=== PATIENT | male | born 1970 | race Caucasian/White ===

== ENCOUNTER 2018-06-30 16:49 | Emergency (ER) | payer MEDICAID, SELFPAY ==
[2018-06-30 16:51] VITALS: BP 143/101; PULSE 106; RESP 17; TEMP 36.9; O2SAT 96; BMI 36.6
--- NOTE | 2018-06-30 17:09 | ED.VISSUMM ---
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 He is trying to get the Vivitrol shot. He is working with Dr. yanez at [facility]. He is supposed to do a 3-day naltrexone trial. Today at approximately 1015 he took his first dose. About 20 minutes later he felt as if he was getting high again. He felt his eyes very squinty and extremely anxious. He took a Vistaril and it is not helping. He denies any hives any itching any swelling any difficulty swallowing. He took himself off Zoloft 1 week ago did not taper dosing. He states that [facility] is aware that he is here. Physical Examination: Afebrile vital signs are stable Gen: Well-nourished well-developed Head: Normocephalic atraumatic Eyes: Perrl EOMI ENT: TMs clear no rhinorrhea moist mucous membranes Neck: Supple no lymphadenopathy no JVD nontender CVS: Regular rate rhythm no murmurs normal S1-S2 Respiratory: No distress clear to auscultation bilaterally chest nontender Abdomen: Soft nontender nondistended normal bowel sounds no masses Back: Nontender Extremity: Nontender no edema Skin: Normal color no rash Neuro: alert orientated ?3 CN II-XII intact normal strength sensation reflexes gait cerebellar Psych: Anxious and fidgety Emergency Department Course and Treatment: Patient does not wish to have any medications that are potentially habit forming or addictive. He does not want any benzodiazepines. Patient will be given IM dose of Benadryl. The active metabolite of naltrexone half-life 13-14 hrs. I would suspect he would start feeling better around midnight tonight then. Do not see any evidence of anaphylaxis or acute allergic reaction. This is a known side effect of naltrexone. Impression: 1. Adverse medication reaction This note was generated with [employer] dictation software. It may contain incorrect words, spelling, and punctuation that were not noted in review of the chart prior to signing ED Disposition - Plan for ED Patient: Disposition: Home or Assisted Living Chief Complaint: Allergic Reaction Instructions: ED Drug React Adverse Other Referrals: Barrett Billings MD [Primary Care Provider] - As Needed Additional Instructions: Please follow-up with [facility] as soon as possible Do not take tomorrow as naltrexone dose.
[2018-06-30] MEDS: DiphenhydrAMINE 50 MG/ML Syringe IM (17:23)
--- OUTSIDE RECORDS SUMMARY | 2018-10-04 07:29 | XMS RPT_ITS ---
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 phalanx of the fifth finger extending to the proximal articular surface. Mild soft tissue swelling of the fifth digit. RAD/Hand Min 3 Views IMPRESSION: Fracture of the middle phalanx of the fifth finger. Electronically Signed: Kamari Marcos DO at 21:39 EST Tel [phone], Service support , CC: Barrett Billings MD; Mignon Daley MD Continuous Process Tanner Rotary Drum: Signed INTERNAL MEDICINE Observed: 07/05/2018 Status: F Source: [place] OFFICE VISIT 8:44 AM [facility] [address] [place] [address] [address] [place] [address] OFFICE VISIT Date of Service: 07/04/18 MR#: [id number] Acct: [id number] Name: ANDRES VARGAS . Rep #: [id number] : 1970 Provider: David Horta NP Age/Sex: 47/M [place] [facility] Status: Signed Intake Vital Signs07/04/18 Body Mass Index (BMI) 36.6 07/04/18 Height 5 ft 4 in 07/04/18 Weight: 209 lb 07/04/18 Body Mass Index (BMI) 35.9 07/04/18 Blood Pressure 135/85 H 07/04/18 Blood Pressure Location Lt brachial Intake Visit Reasons: follow up Chief Complaint: Follow up - Is patient in pain?: Yes (Rt knee) Pain scale (1-10): 8 Allergies naltrexone Allergy (Severe, Verified 07/04/18 10:03) Anxiety Medications acetaminophen 500 mg tablet 500 - 1,000 mg PO Q8H PRN #60 tab 05/23/18 [Rx Confirmed 06/30/18] hydroxyzine HCl 25 mg tablet 25 mg PO TID PRN #60 tab 05/25/18 [Rx Confirmed 06/30/18] dextromethorphan-guaifenesin ER 60 mg-1,200 mg tab,extend release,12hr 1 tab PO Q12H #20 tab 07/04/18 [Rx Confirmed 07/04/18] ibuprofen 400 mg tablet 400 mg PO BID PRN #60 tab 07/04/18 [Rx Confirmed 07/04/18] sodium chloride 0.65 % nasal spray aerosol 2 spray INTRANASAL Q1-4H PRN #104 ml 07/04/18 [Rx Confirmed 07/04/18] trazodone 50 mg tablet 50 mg PO QHS #30 tab 07/04/18 [Rx Confirmed 07/04/18] PFSH Medical History Chronic knee pain (Acute) Drug abuse (Acute) Family History Father Hypertension Heart disease Diabetes Mother Heart disease Hypertension Rectal cancer Diabetes Brother Bone cancer Brain cancer Lung cancer Sister Breast cancer Social History Smoking Status: Current every day smoker alcohol intake: never substance use type: crack/cocaine, other details: Perc 30's Suboxone, former substance user what type of physical activity do you participate in: none HPI HPI Chief Complaint: Follow up - Details: ANDRES VARGAS, is a 47 M who presents to the office today for a routine follow-up, however he has some acute concerns as well. He has a past medical history as listed above. The patient is currently still enrolled in the 180 program for prior drug use. He has not gotten any of his blood work done that was ordered at prior visit. The patient states regarding his depression, he did not tolerate the sertraline to discontinue at, however the trazodone that he takes at night helps with his sleep but also with his depression as well. He takes Vistaril as needed for his anxiety which he does well with. He does have some acute concerns of right knee pain and productive cough of clear sputum. He states the cough has been going on since last night and the knee pain has been going on for 3 days. Regarding the cough he has not tried any gmge-cam-tpxkjlv treatments, he denies any other associated symptoms with the cough. He does state that he has been exposed to some sick contacts at the house he is residing in. He brings up right knee pain which occurred approximately 3 days ago when he is playing racFlowbox and he felt his knee pop in and out of place. Since then he states that he has been swollen on the medial and lateral aspect and has been painful 4 out of 10 worse with ambulation. Denies any icing or any treatments at this time. The patient otherwise denies any fever, chills, nausea, vomiting, shortness of breath, chest pain or pressure, palpitations, orthopnea, lower extremity edema, syncope or presyncopal episodes. ROS Const Constitutional: No chills, fatigue, fever(s), frequent falls, malaise, weakness, sleep problems, change in appetite or headache(s) Eyes Eyes: No blurry vision, change in vision, double vision, discharge or visual disturbances ENT ENT: Positive for sore throat; no abnormal hearing, ear pain, ear pressure, tinnitus, dizziness/vertigo or headache(s) Resp Respiratory: Positive for cough Cough: Yes productive; no shortness of breath or wheezing Cardio Cardiology: No chest pain at rest, chest pain with exertion, shortness of breath, dyspnea on exertion, generalized swelling, irregular heart rhythm, lightheadedness, orthopnea, fast heart rate or palpitations Gastro GI: No abdominal pain, change in bowel habits, constipation, diarrhea, nausea/dyspepsia or vomiting Genitourinary Male: No difficulty urinating, burning urination, painful urination, urinary incontinence, urinary frequency, urinary urgency, urinary hesitancy, urinary retention, blood in urine, Frequent nighttime urination/ nocturia, sexual problems, testicle lump or testicle pain Musc Musculoskeletal: Positive for joint pain (Rt knee); no back pain, joint swelling, limited range of motion, muscle weakness, numbness or tingling Skin Skin: No change in skin color, itching, rash or wounds Breast Breast: No breast lump or breast pain Neuro Neurology: No frequent falls, weakness, abnormal hearing, numbness, tingling, unsteady gait/balance, dizziness, loss of vision, memory loss, visual disturbances or headache(s) Psych Psychiatric: No memory loss, No anxiety, No change in appetite, No depression, No Thoughts of harming yourself/Others Endo Endocrine: No fatigue, heat intolerance, increased thirst/drinking, increased hunger or increased urination Aller/Imm Allergy/Immunologic: No wheezing, itchy eyes or seasonal allergy symptoms Hugh/Lymp Hematologic/Lymphatic: No easy bleeding, easy bruising or enlarged lymph nodes Exam Const General: cooperative, comfortable, no acute distress Nutritional Appearance: well nourished, obese Orientation: alert, oriented x3 Limitations: mental status not altered HENMT Head: normal to inspection Ears: hearing grossly normal bilaterally, TM's normal bilaterally Nose: external nose normal, mucous membranes and turbinates abnormal other (dry bilaterally), no nasal discharge noted Face and sinus: normal facial exam Mouth: oral mucosae normal Teeth and gingiva: poor dentition Throat: posterior oropharynx normal Neck Neck: no lymphadenopathy Resp Effort AND Inspection: normal respiratory effort, able to speak in complete sentences, normal respiratory pattern, symmetric chest movement, no audible wheezes, no cough Auscultation: Bilateral: Expiratory Wheezes (clears with cough) Cardio Palpation: normal PMI Rate: regular rate Heart Sounds: S1 normal, S2 normal, normal S1 and S2, no click, no gallops, no murmurs, no rubs Musc Musculoskeletal: No muscle weakness Other: Small amount of edema with tenderness present right medial and lateral patella, full range of motion, mild crepitus noted as well with passive and active range of motion. Negative anterior posterior drawer Skin General: no rashes or lesions noted, elasticity normal, turgor normal Lesions: no lesions Rashes: no rashes Neuro General: alert, awake, oriented x3, CN's II-XI intact bilaterally Speech: speech normal Gait: normal gait Motor: muscle tone normal throughout Extrem General: normal to inspection, normal gait, no edema, no pedal edema Psych Appearance: grossly normal Mental Status: mental status grossly normal Affect: normal affect Attitude: cooperative Thought Process: normal Assessment AND Plan 1. Cough R05 Plan Duration times 1 day, most likely viral at this time. Encouraged smoking cessation, will treat supportively with Mucinex DM and nasal [place] given his dry nasal mucosa. Discussed red like symptoms requiring urgent medical attention. Patient verbalized understanding. 2. Acute pain of right knee M25.561 Plan Status post recent injury playing racquetball, x-ray ordered of the right knee. Will treat conservatively at this time and referral to Orth O in the future if indicated. May continue with the use of neih-lii-vwjxoyf analgesics such as ibuprofen or Tylenol as called to his pharmacy. Rest the affected extremity Ice the affected area for 20 minutes every 4 hours Compress the area with the supplies provided Elevate the affected extremity above the heart whenever possible Orders Orders: 3. Polysubstance abuse F19.10 Plan Patient to continue with the 180 program and encouraged to have baseline blood work done that was ordered at prior office visit. 4. Anxiety and depression F41.9; F32.9 Plan Controlled on as needed Vistaril for anxiety and trazodone for the depression, no changes to current medication regimen. He was unable to tolerate SSRI therapy. Medications New: 5. Tobacco abuse Z72.0 Plan Unwilling to discuss pharmacologic options at smoking cessation at this time, will address at future visit. Plan Detail Other Medications New: dextromethorphan-guaifenesin 60-1,200 mg (Mucinex DM) take w1 tab PO Q12H 20 tabs 0RF ith full glass of water Refilled: Follow Up 4 weeks or sooner if needed Coding Level of Care Code Off vis,est,level 4 Diagnoses Cough R05 Acute pain of right knee M25.561 Polysubstance abuse F19.10 Anxiety and depression F41.9; F32.9 Tobacco abuse Z72.0 07/05/18 0844 <Electronically signed by David ALVARENGA> Date David ALVARENGA Cosigner Signature: Date (if applicable) CC: EMERGENCY DEPARTMENT Observed: 06/30/2018 Status: F Source: [place] SUMMARY 10:39 PM [facility] REPOSITORY [facility] Medical Records Department [address] [place] [address] Emergency Department Summary 06/30/18 1709 MR#: [id number] Acct: [id number] Name: ANDRES VARGAS Jr. Rep #: [id number] : 1970 47 From: Pj Valles DO PCP: Barrett Billings MD Status: DEP ER - ER Visit Summary Date of Service: 06/30/18 Chief Complaint: Medication reaction History of Present Illness: The patient is a 47 M who is 37 days sober. He is trying to get the Vivitrol shot. He is working with Dr. yanez at 180. He is supposed to do a 3-day naltrexone trial. Today at approximately 1015 he took his first dose. About 20 minutes later he felt as if he was getting high again. He felt his eyes very squinty and extremely anxious. He took a Vistaril and it is not helping. He denies any hives any itching any swelling any difficulty swallowing. He took himself off Zoloft 1 week ago did not taper dosing. He states that 180 is aware that he is here. Physical Examination: Afebrile vital signs are stable Gen: Well-nourished well-developed Head: Normocephalic atraumatic Eyes: Perrl EOMI ENT: TMs clear no rhinorrhea moist mucous membranes Neck: Supple no lymphadenopathy no JVD nontender CVS: Regular rate rhythm no murmurs normal S1-S2 Respiratory: No distress clear to auscultation bilaterally chest nontender Abdomen: Soft nontender nondistended normal bowel sounds no masses Back: Nontender Extremity: Nontender no edema Skin: Normal color no rash Neuro: alert orientated 3 CN II-XII intact normal strength sensation reflexes gait cerebellar Psych: Anxious and fidgety Emergency Department Course and Treatment: Patient does not wish to have any medications that are potentially habit forming or addictive. He does not want any benzodiazepines. Patient will be given IM dose of Benadryl. The active metabolite of naltrexone half-life 13-14 hrs. I would suspect he would start feeling better around midnight tonight then. Do not see any evidence of anaphylaxis or acute allergic reaction. This is a known side effect of naltrexone. Impression: 1. Adverse medication reaction This note was generated with BDA dictation software. It may contain incorrect words, spelling, and punctuation that were not noted in review of the chart prior to signing ED Disposition - Plan for ED Patient: Disposition: Home or Assisted Living Chief Complaint: Allergic Reaction Instructions: ED Drug React Adverse Other Referrals: Barrett Billings MD [Primary Care Provider] - As Needed Additional Instructions: Please follow-up with 180 as soon as possible Do not take tomorrow as naltrexone dose. What to do if you have Problems For any increased pain, shortness of breath, bleeding, nausea or vomiting, chest pain, or any unexpected problems, contact your Primary Care Provider. Call [facility] ([phone]) or report to the closest Emergency Room. Call 911 if necessary. 06/30/18 4848 <Electronically signed by Pj Valles DO> Date Pj Valles DO Cosigner Signature (If Indicated): Date CC: Barrett Billings MD INTERNAL MEDICINE Observed: 05/23/2018 Status: F Source: [place] OFFICE VISIT 4:33 PM [facility] [address] [place] [address] [address] [place] [address] OFFICE VISIT Date of Service: 05/23/18 MR#: [id number] Acct: [id number] Name: ANDRES VARGAS Rep #: [id number] : 1970 Provider: David Horta NP Age/Sex: 47/M [place] [facility] Status: Signed Intake Vital Signs05/23/18 Height 5 ft 4 in 05/23/18 Weight: 189 lb 05/23/18 Body Mass Index (BMI) 32.4 05/23/18 Blood Pressure 156/80 H 05/23/18 Blood Pressure Location Lt brachial Intake Visit Reasons: ONE EIGHTY Chief Complaint: 180 physical Is patient in pain?: Yes (Withdrawal) Allergies No Known Allergies Allergy (Unverified 05/23/18 14:19) Medications acetaminophen 500 mg tablet 500 - 1,000 mg PO Q8H PRN #60 tab 05/23/18 [Rx Confirmed 05/23/18] amoxicillin 875 mg-potassium clavulanate 125 mg tablet 1 tab PO BID #20 tab 05/23/18 [Rx Confirmed 05/23/18] ibuprofen 400 mg tablet 400 mg PO BID PRN #60 tab 05/23/18 [Rx Confirmed 05/23/18] loperamide 2 mg tablet 2 mg PO Q8H PRN #10 tab 05/23/18 [Rx Confirmed 05/23/18] sertraline 50 mg tablet 50 mg PO QDAY #30 tab 05/23/18 [Rx Confirmed 05/23/18] PFSH Medical History Chronic knee pain (Acute) Drug abuse (Acute) Family History Father Hypertension Heart disease Diabetes Mother Heart disease Hypertension Rectal cancer Diabetes Brother Bone cancer Brain cancer Lung cancer Sister Breast cancer Social History Smoking Status: Heavy Smoker (>10/day) alcohol intake: never substance use type: crack/cocaine, other details: Perc 30's Suboxone, former substance user what type of physical activity do you participate in: none HPI HPI Chief Complaint: 180 physical Details: ANRDES VARGAS, is a 47 M who presents to the office today for physical for admittance into 180 program. The patient has a past medical history of polysubstance abuse, anxiety, and depression but has never been on prescription medication for his anxiety/depression. Patient presents today for physical so that he can be admitted into the 180 program. He states that he has a past history of drug use with snorting cocaine, smoking crack and taking Percocet. Patient states he has been clean for 2 days. He is actively detoxing and presents today with the bridge detox device to his left ear, he states this device helps with detox and makes his symptoms significantly less. This was provided to him from the 180 program. He is complaining of intermittent nausea and diarrhea and is requesting an antidiarrheal neql-knh-ezdchun agent. The patient states he does not have a significant past medical history, he does not take routine medications. He smokes about a pack and a half a day with rare alcohol use, he does not wish to quit smoking at this time. He has no concerns for STDs. He does admit to significant anxiety/depression for several years now. He denies any thoughts of harming self or others however. He does admit to very poor dentition and states that last week 1 of his teeth on his right lower jaw cracked off and that is causing him to have a dull achy pain as well. The patient otherwise denies any fever, chills, nausea, vomiting, shortness of breath, chest pain or pressure, palpitations, orthopnea, lower extremity edema, syncope or presyncopal episodes. ROS Const Constitutional: No chills, fatigue, fever(s), frequent falls, malaise, weakness, sleep problems or change in appetite Eyes Eyes: No blurry vision, change in vision, double vision, discharge or visual disturbances ENT ENT: No abnormal hearing, ear pain, ear pressure, tinnitus or dizziness/vertigo Resp Respiratory: No cough, shortness of breath or wheezing Cardio Cardiology: No chest pain at rest, chest pain with exertion, shortness of breath, dyspnea on exertion, generalized swelling, irregular heart rhythm, lightheadedness, orthopnea, fast heart rate or palpitations Gastro GI: No abdominal pain, change in bowel habits, constipation, diarrhea, nausea/dyspepsia or vomiting Genitourinary Male: No difficulty urinating, burning urination, painful urination, urinary incontinence, urinary frequency, urinary urgency, urinary hesitancy, urinary retention, blood in urine, Frequent nighttime urination/ nocturia, sexual problems, testicle lump or testicle pain Musc Musculoskeletal: Positive for joint pain (Rt Knee); no back pain, joint swelling, limited range of motion, muscle weakness, numbness or tingling Skin Skin: No change in skin color, itching, rash or wounds Breast Breast: No breast lump or breast pain Neuro Neurology: No frequent falls, weakness, abnormal hearing, numbness, tingling, unsteady gait/balance, dizziness, loss of vision, memory loss or visual disturbances Psych Psychiatric: No memory loss, No anxiety, No change in appetite, No depression, No Thoughts of harming yourself/Others Endo Endocrine: No fatigue, heat intolerance, increased thirst/drinking, increased hunger or increased urination Aller/Imm Allergy/Immunologic: No wheezing, itchy eyes or seasonal allergy symptoms Hugh/Lymp Hematologic/Lymphatic: No easy bleeding, easy bruising or enlarged lymph nodes Exam Const General: cooperative, comfortable, no acute distress Nutritional Appearance: average body habitus, well nourished Orientation: alert, oriented x3 Limitations: mental status not altered [facility] Head: normal to inspection Ears: hearing grossly normal bilaterally, other (bridge device in place left ear) Nose: external nose normal Face and sinus: normal facial exam Mouth: oral mucosae normal, malodorous breath Teeth and gingiva: poor dentition, caries, abnormal tooth or associated gingiva, other (multiple broken off teeth, upper and lower, no abscess or fluctuance) Eyes General: appearance normal, both eyes and all related structures Neck Neck: no lymphadenopathy Resp Effort AND Inspection: normal respiratory effort, able to speak in complete sentences, normal respiratory pattern, symmetric chest movement, no audible wheezes, no cough Auscultation: Bilateral: Clear to Auscultation Cardio Palpation: normal PMI Rate: regular rate Heart Sounds: S1 normal, S2 normal, normal S1 and S2, no click, no gallops, no murmurs, no rubs GI Inspection: normal to inspection Auscultation: normal bowel sounds, no hyperactive bowel sounds, no hypoactive bowel sounds Palpation: soft, no hepatosplenomegaly, tender (mild, with bloating) in the LLQ, in the RLQ, in the LUQ and in the RUQ Musc Musculoskeletal: No muscle weakness Skin General: no rashes or lesions noted, elasticity normal, turgor normal Lesions: no lesions Rashes: no rashes Neuro General: alert, awake, oriented x3, CN's II-XI intact bilaterally Speech: speech normal Gait: normal gait Motor: muscle tone normal throughout Extrem General: normal to inspection, normal gait, no edema, no pedal edema Psych Appearance: grossly normal Mental Status: mental status grossly normal Affect: anxious affect Attitude: cooperative Thought Process: normal Assessment AND Plan 1. Polysubstance abuse F19.10 Plan Patient currently in acute detox, however his vitals and symptoms are stable at this time. Baseline blood work ordered. Patient is trialing the bridge medical geneticist to minimize opioid withdrawal symptoms. He has having occasional diarrhea and some abdominal bloating, Imodium cepn-bzd-qeigbyc was called to his pharmacy. Wrvn-gmn-wawjnpi ibuprofen and Tylenol was called to his pharmacy as well. Baseline blood work ordered. Patient cleared to be admitted to the 180 program. Orders Orders: 2. Anxiety and depression F41.9; F32.9 Plan Patient does have both anxiety and depression, his PHQ 9 score was 18 indicating moderately severe depression. He currently denies any thoughts of harming self or others. We will start him on sertraline 50 mg daily, advised to call office in 2 weeks and if still having difficulties with anxiety and depression then may consider increasing the dose. Discussed with him that benzodiazepines are not appropriate given his history. Orders Orders: 3. Toothache K08.89 Plan Patient has very poor dentition and multiple caries, will place on Augmentin and instructed to follow-up with dentist as soon as possible. Discussed red flag symptoms of infection that require urgent medical attention. Patient verbalized understanding. 4. Tobacco abuse Z72.0 Plan Patient does have a significant smoking history, however does not wish to discuss smoking cessation at this time. Will follow at future visit. Plan Detail Other Orders Orders: Other Medications New: Follow Up 4 weeks or sooner if needed Coding Level of Care Code Off vis,new,level 3 Diagnoses Polysubstance abuse F19.10 Anxiety and depression F41.9; F32.9 Toothache K08.89 Tobacco abuse Z72.0 05/23/18 1633 <Electronically signed by David ALVARENGA> Date David Horta NP-C Cosigner Signature: Date (if applicable) CC: ALLERGIES ALLERGIES DATE TYPE / CODE NAME / CODE REACTION SEVERITY SOURCE 07/04/2018 Drug naltrexone/F0 ANXIETY SV [facility] Allergy/4160 [id number]([facility] 22874(SNOMED RM) Repository CT) 06/30/2018 Drug No Known Unknown [facility] Allergy/4160 Allergies/F00 [facility] 11030(SNOMED [id number](RXNOR Repository CT) M) ENCOUNTERS ENCOUNTERS ADMIT/DISCHARGE ACCOUNT ADMITTING ENCOUNTER LOCATION SOURCE NUMBER CLASS 08/08/2018 [id number] Ambulatory [facility]MS[facility]:B [place] [facility] [place] [place] 08/08/2018/ [id number] Ambulatory BMSBuilding:B [place] 9 0 [facility] [place] 08/07/2018 [id number] Ambulatory [place] 9 [facility] ing:PT Repository 07/24/2018 [id number] Ambulatory [place] 2 [facility] ing:LAB Repository 07/19/2018 [id number] Ambulatory [place] 9 [facility] ing:LAB Repository 07/07/2018/ [id number] Emergency [place] 8 5 [facility] ing:ED Repository 07/04/2018/ [id number] Ambulatory BMSBuilding:B [place] 8 6 [place] [place] 06/30/2018/ [id number] Emergency [place] 8 7 [facility] ing:ED Repository 05/25/2018 [id number] Ambulatory BMSBuilding:B [place] 9 [place] [place] 05/23/2018/ [id number] Ambulatory BMSBuilding:B [place] 8 1 [facility] [place] PAYERS PAYERS ENCOUNTER GUARANTOR PAYER SUBSCRIBER SOURCE 08/08/2018 ANDRES [place] Primary ANDRES Ambrose [place] VARGAS Jr.6003 Insurance:MARGARET VARGAS Jr.: [facility] [id number]: Repository [place] [id number]: [id number] Date:[id number] [address]DJ: 08/08/2018 Secondary NOT GIVENUNK [place] Insurance:SELF PAY [facility] [facility] Number: Effective Repository Date:2018-08-08 08/08/2018 ANDRES Primary ANDRES Ambrose Gabby VARGAS Jr.6003 Insurance:MARGARET VARGAS Jr.: [facility] [place] [id number], Number: Repository [place] [id number]: [id number] Date:9198-96-24ZE [address] () [address] [address]OC: 08/08/2018 Secondary NOT GIVENUNK [place] Insurance:SELF PAY [facility] Number: Effective Repository Date:2018-08-01 08/07/2018 ANDRES H Primary ANRDES Ambrose Gabby VARGAS Jr.6003 Insurance:MARGARET VARGAS Jr.: [facility] [place] [id number], Number: Repository [place] [id number]: [id number] Date:1602-74-37WS [address] ([address]) [address], [place] [address]RC: 08/07/2018 Secondary NOT GIVENUNK [place] Insurance:SELF PAY [facility] Number: Effective Repository Date:2018-08-01 07/24/2018 [facility] Primary ANDRES Pierre SAM Chairez.6003 A Insurance:MARGARET VARGAS Jr.: [facility] [id number], Number: Repository [place] [id number]: [id number] Date:6599-60-98NL [address] ([address]) [address], [place] [address]DF: 07/24/2018 Secondary NOT GIVENUNK [place] Insurance:SELF PAY [facility] Number: Effective Repository Date:2018-07-24 07/19/2018 [facility] Primary ANDRES Pierre SAM Chairez.[id number] A Insurance:MARGARET VARGAS Jr.: [facility] [id number], Number: Repository [place] [id number]: [id number] Date:6166-47-08YN [address] () [address], [place] [address]ZV: 07/19/2018 Secondary NOT GIVENUNK Gabby Insurance:SELF PAY [facility] Number: Effective Repository Date:2018-07-19 07/07/2018 [facility] Primary ANDRES Pierre SAM Chairez.6003 A Insurance:MARGARET VARGAS Jr.: [facility] [id number] Hospital, Number: [place]ository [place] [id number]: [id number] Date:3749-81-78CI [address] ([address]) [address], [place] [address]DF: 07/07/2018 Secondary NOT GIVENUNK [place] Insurance:SELF PAY [facility] Number: Effective Repository Date:2018-07-07 07/04/2018 ANDRES H Primary ANDRES VARGAS Jr.6003 A Insurance:MARGARET VARGAS Jr.: [facility] [id number] Hospital, Number: Repository [place] [id number]: [id number] Date:4099-79-01DH [address] () [address] [address]BI: 07/04/2018 Secondary NOT GIVENUNK Gabby Insurance:SELF PAY [facility] Number: Effective Repository Date:2018-07-04 06/30/2018 [facility] Primary ANDRES VARGAS Jr.6003 A Insurance:MARGARET VARGAS Jr.: [facility] [id number] Hospital, Number: Repository [place] [id number]: [id number] Date:6440-98-89MU [address] () [address] [address]DR: 06/30/2018 Secondary NOT GIVENUNK Gabby Insurance:SELF PAY [facility] Number: Effective Repository Date:2018-06-30 05/25/2018 ANDRES Primary NOT GIVENUNK [place] [id number] Insurance:SELF PAY [facility], Number: Effective Repository [place] [id number]: Date:2018-05-25 () 05/23/2018 ANDRES Primary NOT GIVENUNK [place] [id number] Insurance:SELF PAY [facility], Number: Effective Repository [place] [phone]: Date:2018-05-23 ()
== END 2018-06-30 17:41 | disposition home or self-care (01) ==
PROVIDERS: Emergency Provider Emergency Medicine; Family Provider Internal Medicine; PCP Internal Medicine
DX: T88.7XXA Unspecified adverse effect of drug or medicament, initial encounter (principal); T50.7X5A Adverse effect of analeptics and opioid receptor antagonists, initial encounter; Y92.9 Unspecified place or not applicable; F41.9 Anxiety disorder, unspecified; Z72.0 Tobacco use; Z79.899 Other long term (current) drug therapy
CPT/HCPCS: 96372; 99282

== ENCOUNTER 2018-07-07 20:29 | Emergency (ER) | payer MEDICAID, SELFPAY ==
[2018-07-04 10:07] VITALS: BMI 36.6
[2018-07-07 20:30] VITALS: BP 147/98; PULSE 106; RESP 22; TEMP 36.3; O2SAT 98; BMI 38.0
--- NOTE | 2018-07-07 20:47 | ED.DCSUM_ITS ---
- ER Visit Summary Date of Service: 07/07/18 Chief Complaint: Left fifth finger injury History of Present Illness: The patient is a 47 M who reports catching his left fifth finger and twisting it shortly before arrival. His pain throughout the length of the fifth finger. He denies paresthesias. He is right-hand dominant. Physical Examination: Vital signs unremarkable. Patient sitting upright on the side of the bed no acute distress. Left upper extremity examination reveals diffuse tenderness throughout the left fifth finger. There is early ecchymosis noted. No deformity is appreciated. He has normal sensation and cap refill distally. Test Results: X-ray reveals a fracture through the proximal portion of the middle phalanx of the fifth finger. There is extension into the PIP joint. Emergency Department Course and Treatment: Patient is placed in an AlumaFoam splint. I did encourage close follow-up with orthopedic surgeon who does do hand work because of the joint involvement. He is given information for Dr. Sierra as well as the hand surgeons in [place]. Treatment Plan: [] Disposition: Discharge Impression: Left fifth finger fracture This note was generated with [employer] dictation software. It may contain incorrect words, spelling, and punctuation that were not noted in review of the chart prior to signing ED Disposition - Plan for ED Patient: Chief Complaint: Upper Extremity Injury Referrals: Barrett Billings MD [Primary Care Provider] -
--- NOTE | 2018-07-07 20:50 | RAD_ITS ---
STUDY: X-RAY - LEFT HAND REASON FOR EXAM: Male, 47 years old. Pain, fifth digit injury TECHNIQUE: 3 view(s) of the hand. COMPARISON: None. FINDINGS: Normal radiocarpal articulation. Normal distal radioulnar joint. Normal visualized carpal bones. Normal carpal articulations Normal carpometacarpal articulation of the thumb. Normal second through fifth carpometacarpal joints. Normal metacarpi. Normal metacarpophalangeal joint of the thumb. Normal interphalangeal joint of the thumb. Normal proximal and distal phalanges of the thumb. Normal metacarpophalangeal joints of the second through fifth fingers. Normal proximal and distal interphalangeal joints of the second through fifth fingers. Fracture of the middle phalanx of the fifth finger extending to the proximal articular surface. Mild soft tissue swelling of the fifth digit. RAD/Hand Min 3 Views IMPRESSION: Fracture of the middle phalanx of the fifth finger. Electronically Signed: Kamari Marcos DO at 21:39 EST Tel [phone], Service support ,
--- NOTE | 2018-07-07 21:06 | ED.DEP ---
ED Disposition - Plan for ED Patient: Disposition: Home or Assisted Living Chief Complaint: Upper Extremity Injury Instructions: ED Fx Finger Closed Prescriptions: Naproxen [Naprosyn] 500 mg PO BID PRN PRN #20 tablet PRN Reason: Pain Referrals: Kavitha Sierra DO [STAFF PHYSICIAN] - Yonas Gonzalez MD [NON-STAFF] - Additional Instructions: Follow-up with one of the hand surgeons above in [address] splint in place.
[2018-07-07 21:36] VITALS: PULSE 111; RESP 16; O2SAT 99
== END 2018-07-07 21:37 | disposition home or self-care (01) ==
PROVIDERS: Emergency Provider Emergency Medicine; Family Provider Internal Medicine; PCP Internal Medicine
DX: S62.627A Displaced fracture of middle phalanx of left little finger, initial encounter for closed fracture (principal); X50.1XXA Overexertion from prolonged static or awkward postures, initial encounter; Y93.9 Activity, unspecified; Y92.9 Unspecified place or not applicable; Y99.9 Unspecified external cause status; F32.9 Major depressive disorder, single episode, unspecified; F41.9 Anxiety disorder, unspecified; Z72.0 Tobacco use
CPT/HCPCS: 73130; 99282

== ENCOUNTER → 2018-07-19 15:03 | Outpatient (CLI) | payer MEDICAID, SELFPAY ==
[2018-07-07 20:30] VITALS: BMI 38.0
--- NOTE | 2018-07-19 15:28 | RAD_ITS ---
STUDY: X-RAY - RIGHT KNEE REASON FOR EXAM: Male, 47 years old. Right knee pain. No known injury. TECHNIQUE: 3 view(s) of the knee. COMPARISON: None. FINDINGS: There is subcortical cystic degenerative change and focal cortical lobulation along the articular aspect of the medial femoral condyle. Normal visualized proximal tibia and fibula. Normal patella. There is no demonstrated destructive osseous lesion or acute fracture. There is borderline degenerative narrowing of the medial femorotibial compartment. Normal lateral femorotibial compartment. Normal patellofemoral articulation. Normal proximal tibiofibular articulation. There is no demonstrated joint effusion. The soft tissue structures are unremarkable. RAD/Knee 3 Views IMPRESSION: Subcortical cystic degenerative change and focal cortical lobulation along the articular margin of the medial femoral condyle. Electronically Signed: Preet Clancy MD at 15:29 EST , Service support ,
[2018-07-19 15:54] LABS: Absolute Lymphocyte Count 2.55 X10^3/ul (0.83-4.51); Absolute Neutrophil Count 6.8 X10^3/uL (2.0-7.7); Basophil# 0.04 X10^3/uL; Basophil% 0.4 % (0-1); Eosinophils% 2.9 % (0-5); Hematocrit 46.1 % (40-54); Hemoglobin 15.1 g/dl (13.0-16.5); Lymphocyte # 2.55 X10^3/ul (4.0); Lymphocyte % 24.3 % (19-41); Mean Corp Hgb Conc 32.8 g/gl (32-36); Mean Corpuscular Hgb 28.1 pg (27.0-32.0); Mean Corpuscular Volume 85.8 fL (80-94); Mean Platelet Vol. 11.2 fl (6.2-12.0); Monocyte% 6.7 % (0-10); Neutrophil # 6.82 X10^3/uL (2.7-7.7); Neutrophil % 64.9 % (47-70); Platelet Count 282 K/mm3 (150-450); RBC Distribution Width CV 13.7 % (11.6-14.6); RBC Distribution Width SD 42.4 fl (35.1-43.9); Red Blood Count 5.37 M/mm3 (4.6-6.2); White Blood Count 10.5 K/mm3 (4.4-11.0)
[2018-07-19 15:56] LABS: POSITIVE COUNT NO; POSITIVE DIFFERENTIAL NO; POSITIVE MORPHOLOGY NO
[2018-07-19 16:36] LABS: ALB/GLOB Ratio 1.1 RATIO (0.9-2.4); AST(SGOT) 42 U/L (15-37); Alanine Aminotransfer ALT/SGPT 79 U/L (16-61); Alkaline Phosphatase 102 U/L (45-117); Anion Gap 8 (5-15); BUN 20 mg/dL (7-18); BUN/Creat Ratio 14.9 RATIO (10-20); Calcium,Total 8.9 mg/dL (8.5-10.1); Chloride 103 mmol/L (98-107); Creatinine, Serum 1.34 mg/dL (0.70-1.30); EST Glomerular Filtration Rate 61 mL/min (>60); Est Glom Filt Rate - Afr Amer 74 mL/min (>60); Globulin 3.5 g/dL (2.2-4.2); Glucose 118 mg/dL (74-106); Potassium 4.1 mmol/L (3.5-5.1); Protein, Total 7.5 g/dL (6.4-8.2); Sodium Level 139 mmol/L (136-145); Thyroid Stim Hormone (TSH) 1.04 uIU/mL (0.358-3.74)
[2018-07-19 17:34] LABS: HIV - WCH Non-Reactive (Nonreactive)
[2018-07-21 03:06] LABS: HEPATITIS B SURFACE AG Negative (Negative); Hepatitis A AB, Total Negative (Negative); Hepatitis A IgM Antibody Negative (Negative); Hepatitis B Core AB IgM Negative (Negative); Hepatitis B Core Ab Total Negative (Negative); Hepatitis C Ab <0.1 s/co ratio (0.0-0.9)
[2018-07-21 16:42] LABS: Hep B Surface Antibodies Non Reactive (.)
== END ==
PROVIDERS: Family Provider Internal Medicine; PCP Internal Medicine; Referring Provider Nurse Practitioner Family; Visit Provider Nurse Practitioner Family
DX: M25.561 Pain in right knee (principal); F19.10 Other psychoactive substance abuse, uncomplicated; F32.9 Major depressive disorder, single episode, unspecified; F41.9 Anxiety disorder, unspecified
CPT/HCPCS: 36415; 73562; 80053; 84443; 85025; 86703; 86704; 86705; 86706; 86708; 86709; 86803; 87340

== ENCOUNTER → 2018-07-24 09:00 | Outpatient (CLI) | payer MEDICAID, SELFPAY ==
[2018-07-07 20:30] VITALS: BMI 38.0
[2018-07-24 10:46] LABS: Cholesterol 187 mg/dL (200); High Density Lipoprotein 44 mg/dL; Triglycerides 304 mg/dL; Very Low Density Lipoprotein 61 mg/dL (5-40)
== END ==
PROVIDERS: Family Provider Internal Medicine; PCP Internal Medicine; Referring Provider Nurse Practitioner Family; Visit Provider Nurse Practitioner Family
DX: Z13.220 Encounter for screening for lipoid disorders (principal)
CPT/HCPCS: 36415; 80061

== ENCOUNTER 2018-08-18 16:00 | Outpatient (RCR) | payer MEDICAID, SELFPAY ==
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
--- NOTE | 2019-03-20 14:37 | HP.PT.NRP ---
HP - Discharge Summary (1) - Patient Information ANDRES VARGAS Jr. was seen in my office for initial evaluation on 08/01/18. The following Plan of Care was established for this patient: Initial Frequency: 2x /Week Initial Duration: 4 Weeks - Anticipated Interventions Patient/Client Instruction: Educate patient on: Benefits of Fitness Program Therapeutic Exercise to Include: Strength training, Endurance training, Balance training, Coordination, Agility training, Body mechanics, Postural training, Flexibilty training, Gait and locomotor training, Dynamic Lumbar Stabilization For the Purpose of:: To improve muscle performance and motor function TENS: Yes Cryotherapy (ice pack, ice massage): Yes Thermo therapy (hot pack): Yes Ultrasound (thermal/non thermal): Yes For the Purpose of:: To decrease pain This patient was last seen in our office . Pertinent comments regarding their Physical therapy will appear below: Patient has not attended PT in over 6 weeks and is appropriate for d/c and to return to MD for further evaluation as needed. At this point I will be discontinuing this patient from physical therapy. I would be happy to see this patient again in the future if found appropriate by the physician. Thank you! ELSA DuranT
== END 2018-08-18 19:00 | disposition home or self-care (01) ==
LOC: PT 16:00
PROVIDERS: Family Provider Internal Medicine; PCP Internal Medicine; Referring Provider Nurse Practitioner Family; Visit Provider Nurse Practitioner Family
DX: M25.551 Pain in right hip (principal); M54.9 Dorsalgia, unspecified; G89.29 Other chronic pain
CPT/HCPCS: 97110; 97162